=== PATIENT | male | born 1990 | race Hispanic/Latino ===

== ENCOUNTER 2017-05-13 17:51 | Emergency (ER) | payer OTHER ==
[~2017-05-13] VITALS: Ht 177.8 cm; Wt 90.0 kg
[~2017-05-13 17:51] MED LIST: AMOXICILLIN500 MG OR; BENTYL20 MG PO; NAPROSYN500 MG PO; NO HOME MEDS; PRILOSEC20 MG/CAP PO; ZOFRAN ODT4 MG PO
[2017-05-13 18:24] LABS: HEMATOCRIT 43.3 % (39.0-50.0); HEMOGLOBIN 14.9 g/dl (14.0-18.0); IMMATURE GRANULOCYTES 0.6 % (0.0-1.0); MEAN CELL VOLUME 85.6 fL CALC (80.0-100.0); MEAN CORPUSCULAR HGB 29.4 pG CALC (26.0-32.0); MEAN CORPUSCULAR HGB CONC 34.4 g/L CALC (32.0-36.0); NEUT# 16.34 thou/uL (1.82-7.42); RED BLOOD COUNT 5.06 mill/uL (4.70-6.10); RED CELL DISTRI WIDTH 13.2 % (11.5-15.5)
[2017-05-13 18:37] LABS: ALBUMIN 4.7 g/dL (3.2-5.0); ALKALINE PHOSPHATASE 85 u/l (38-126); ANION GAP 20 (6-22 (CALC)); BILIRUBIN, TOTAL 0.6 mg/dL (0.0-1.4); BUN 11 mg/dL (9-20); BUN/CREATININE RATIO 14 (12-20 (CALC)); CALCIUM 9.8 mg/dL (8.4-10.2); CARBON DIOXIDE 18 mmol/l (22-30); CHLORIDE 104 mmol/l (95-108); CREATININE 0.8 mg/dL (0.7-1.3); GFR > 60 ML/MIN (>=60 (CALC)); GFR FOR AFR.AMER. > 60 ML/MIN (>=60 (CALC)); GLUCOSE 89 mg/dL (75-110); POTASSIUM 3.9 mmol/l (3.5-5.1); SGOT/AST 64 u/l (17-59); SGPT/ALT 50 u/l (21-72); SODIUM 137 mmol/l (137-146); TOTAL PROTEIN 7.7 g/dL (6.3-8.2)
[2017-05-13 19:02] VITALS: BP 128/85
[2017-05-13] MEDS ORDERED: MOTRIN800 MG PO (19:15)
[2017-05-13] MEDS ORDERED: PERCOCET 5/325M1 TAB PO (19:15)
[2017-05-13] MEDS ORDERED: FLEXERIL PO (19:15)
== END 2017-05-13 19:56 | disposition home or self-care (01) | DRG 605 ==
LOC: ED 17:51
PROVIDERS: Emergency Medicine
PROC: 0HQ0XZZ Repair Scalp Skin, External Approach (ICD-10-PCS; principal; 2017-05-13)
DX: S01.01XA Laceration without foreign body of scalp, initial encounter (principal); S30.810A Abrasion of lower back and pelvis, initial encounter; S20.211A Contusion of right front wall of thorax, initial encounter; T26.02XA Burn of left eyelid and periocular area, initial encounter; S80.02XA Contusion of left knee, initial encounter; W22.11XA Striking against or struck by driver side automobile airbag, initial encounter; V53.5XXA Driver of pick-up truck or van injured in collision with car, pick-up truck or van in traffic accident, initial encounter; Y92.414 Local residential or business street as the place of occurrence of the external cause

== ENCOUNTER 2017-05-23 12:49 | Emergency (ER) | payer OTHER ==
[~2017-05-23] VITALS: Ht 177.8 cm; Wt 95.4 kg
[~2017-05-23 12:49] MED LIST changes: +FLEXERIL PO; +MOTRIN800 MG PO; +PERCOCET 5/325M1 TAB PO
[2017-05-23 13:15] VITALS: BP 127/81
== END 2017-05-23 13:15 | disposition home or self-care (01) | DRG 950 ==
LOC: ED 12:49
DX: S01.01XD Laceration without foreign body of scalp, subsequent encounter (principal)